=== PATIENT | female | born 1960 | race African-American/Black ===

== ENCOUNTER → 2017-03-24 | Outpatient (CLI) | payer OTHER | LOC: ULTRA 09:19 | DX: K81.9 Cholecystitis, unspecified (principal) ==

== ENCOUNTER 2017-04-01 05:58 | Day surgery (SDC) | payer OTHER ==
[~2017-04-01] VITALS: Ht 170.2 cm; Wt 103.0 kg
--- NOTE | ~2017-04-01 | O ---
[facility] [place] [address] OPERATIVE REPORT Name: BABAR LORENZO Room #: [facility].#: [id number] Admission: 04/01/17 Attend Phys: Cristopher Ortiz MD, F Discharge: 04/01/17 Date of : 64 Report #: [id number] THIS REPORT FOR: //name// CC: [facility] physician/PCP Karen Ortiz DATE OF SERVICE: 04/01/2017 SURGEON: Cristopher Ortiz M.D. ACADEMIC ADMINISTRATOR: Ignacia Collado NP. PREOPERATIVE DIAGNOSES: 1. Biliary colic. 2. Posterior neck subcutaneous mass. POSTOPERATIVE DIAGNOSES: 1. Chronic acalculous cholecystitis with biliary colic symptoms. 2. Incarcerated umbilical hernia. 3. Posterior neck subfascial mass (measuring 8.5 cm x 7.3 cm x 3.3 cm). OPERATIVE PROCEDURES: 1. Robotic cholecystectomy. 2. Laparoscopic primary repair of umbilical hernia. 3. Excision of posterior neck subfascial mass with complex closure. ANESTHESIA: General endotracheal anesthesia and local anesthetic. ESTIMATED BLOOD LOSS: 50 mL. SPECIMENS: 1. Gallbladder. 2. Posterior neck subfascial mass. COMPLICATIONS: None appreciated. INDICATIONS FOR PROCEDURE: This is a 56-year-old female patient who complained of mid abdominal pain. She was seen in the [facility] Emergency Room approximately one month ago and underwent a CT of the abdomen and pelvis, which revealed mild prominence of the intra and extrahepatic biliary tree with mild gallbladder wall thickening and fatty infiltration of the liver. This was followed with an ultrasound showing gallbladder wall thickening. Again, no gallstones were seen. The patient was placed on oral antibiotics for 1 week. She reports having had postprandial right upper quadrant abdominal pain last week, which resolved. She denies nausea, vomiting, fever or chills. In [facility] [address] [address] OPERATIVE REPORT Name: BABAR LORENZO Room #: DEP [facility].Deven.#: [id number] Admission: 04/01/17 Attend Phys: Cristopher Ortiz MD, F Discharge: 04/01/17 Date of : 64 Report #: [id number] addition to this, the patient has complaints of a posterior neck subcutaneous mass. She underwent an MRI showing changes consistent with a lipoma. She denies trauma to the area and has had no pain, fever, chills or unintentional weight loss. The patient states that the mass has been present since 2003 and the mass has slowly grown over time. Excision of the mass is indicated. OPERATIVE FINDINGS: Laparoscopic cholecystectomy/robotically, the patient's gallbladder appeared to be chronically thickened. The liver, stomach, small bowel and colon in the surrounding area appeared otherwise normal. There were some mild fatty changes of the liver without omar steatohepatitis. The critical view consisting of cystic artery, cystic duct and lower edge of the gallbladder forming a window through which the liver was visible, was seen prior to clipping and dividing both the cystic artery and cystic duct. A posterior cystic artery was also present. While removing the patient's gallbladder from the abdominal cavity, an incarcerated umbilical hernia defect was identified. This was repaired with a separate suture for complete closure. The gallbladder was opened on the back table after its removal from the patient's body. Upon opening the gallbladder, cholesterolosis was seen in the gallbladder mucosa. No gallstones were seen. The gallbladder wall was chronically thickened at least 5 mm or 6 mm. The patient's posterior neck mass was subfascial and was not well circumscribed or encapsulated. The fatty tissue was fibrous and difficult to separate from the surrounding tissue. The mass measurements were 8.5 x 7.3 x 3.3 cm. The mass was located subfascially and in removing this, closure of the defect was complex requiring closure of multiple layers. At the conclusion of the operation, the sponge, needle and instrument counts were correct. No other significant pathology either within the abdominal cavity or in the subcutaneous space of the posterior neck was present. There was no evidence for iatrogenic injury. DESCRIPTION OF PROCEDURE IN DETAIL: After the benefits and risks of the procedure were explained to the patient, which include but are not limited to risks of bleeding, infection, postoperative pain, postoperative expectations, informed consent was obtained. The patient was identified in the preoperative holding area. She was given IV antibiotics as documented in the chart in line with the SCIP metrics. The patient was then taken to the operating room and she was placed in the supine position. SCDs were placed on the patient's bilateral lower extremities and pneumatic compression was initiated. The patient was then given IV sedation and she was intubated without incident. The bed was turned 180 degrees with the feet towards the anesthesia provider. The patient's abdomen was then prepped and draped in the standard sterile fashion. Timeout was performed to identify the correct patient and procedure. Local anesthetic was infiltrated into the skin and subcutaneous tissue in the left abdomen where an 8-mm transverse incision was made. A 5 mm Visiport was [address] [address] OPERATIVE REPORT Name: BABAR LORENZO [id number] Admission: 04/01/17 Attend Phys: Cristopher Ortiz MD, F Discharge: 04/01/17 Date of : 64 Report #: [id number] placed intraperitoneally with a 0-degree angled laparoscope. Pneumoperitoneum was then achieved with insufflation of carbon dioxide to 15 mmHg. A 30-degree angled laparoscope was inserted. A supraumbilical 11 mm and right lower quadrant 5 mm ports x2 were placed under direct visualization after local anesthetic was infiltrated into the skin and subcutaneous tissue and appropriately sized incisions were made. Operative findings are as noted above. The 5 mm port that was initially placed in the left abdomen was upsized to an 8 mm da Krystal port. Each of the ports other than the supraumbilical port was port specific for the da Krystal robot. The robot was docked after being advanced to the patient's right shoulder, crossing over the patient. Each of the ports was connected to the robot in the standard fashion. Prior to docking the robot, the patient had been placed in the reverse Trendelenburg position, rotated to her left. After docking the robot, the robotic 10 mm camera was inserted at the umbilicus angled 30 degrees down. The graspers were then advanced into the fourth arm and the right mid 8 mm port; the hook cautery was advanced into the port within the left abdomen. Each instrument was advanced under direct visualization into the field of view. I then broke scrub to perform the dissection on the robotic console. The dissection was undertaken robotically. The dome of the gallbladder was retracted in the cephalad direction. The gallbladder peritoneum was then scored medially and laterally. Dissection was difficult as the patient had significant intra-abdominal fat, which obscured the lower gallbladder. I used the instrument within the fourth arm to push down the tissue and used the grasper through the working port in the right abdomen to elevate the gallbladder. Dissection was carried out tediously with the hook cautery. The critical view consisting of the cystic artery, cystic duct and the lower edge of the gallbladder forming a window through which the liver was visible and was seen as described above. The cystic duct was then triply clipped and divided sharply, leaving 2 clips on the cystic duct stump. The cystic artery was also clipped and divided. The gallbladder was then dissected off the liver bed with electrocautery and appropriate traction. The posterior cystic artery was encountered and this was clipped and divided. Dissection continued until the gallbladder was completely freed from the liver bed and detached. The gallbladder was placed in the right upper quadrant of the abdomen, adjacent to the liver. The suction device was used to ensure good hemostasis within the liver bed. The robot was then undocked from the ports and backed away from the patient. A 5 mm 30-degree angled laparoscope was inserted and the Endopouch was advanced through the supraumbilical port. The gallbladder was placed within the Endopouch and this was withdrawn through the 11 mm port site. While doing so, an incarcerated umbilical hernia was identified inferior to the port and gallbladder removal area. The gallbladder was removed from the patient's abdominal cavity. An 0 PDS suture was placed transversely with the [address] [address] OPERATIVE REPORT Name: BABAR LORENZO Room #: [facility]..#: [id number] Admission: 04/01/17 Attend Phys: Cristopher Ortiz MD, F Discharge: 04/01/17 Date of : 64 Report #: [id number] Pedro Luis-Kurtis laparoscopic fascial closure device to approximate the fascia. The more inferior umbilical defect was skeletonized with appropriate traction and electrocautery to identify the defect. A [id number] 0 PDS suture was then placed with the needle tipped suture grasper. The suture was tied under direct visualization to ensure no incorporation of intraabdominal content. The abdominal cavity was then desufflated and the remaining ports were removed. Interrupted subcuticular 4-0 Monocryl sutures and Dermabond were then used to close the skin incisions. The patient tolerated this portion of the procedure well. The patient was then placed in the left lateral decubitus position with the right side up. The planned incision had been drawn out on the patient's neck. The neck was prepped and draped in the standard sterile fashion. Local anesthetic was infiltrated into the skin and subcutaneous tissue. A sharp #15 blade scalpel was used to make an incision through the skin. The skin was very thick. Electrocautery was used to dissect through this area down to the abdominal wall fat. The abdominal wall fat was dissected as well and fascia was seen. The fascia was then split and the mass was identified deep to the fascial layer. As described above, the fatty tissue was quite fibrous and adherent to the surrounding tissue making delineation of the mass itself quite difficult. The fibrofatty tissue was dissected free with electrocautery using both cut and coag modes. An area of bleeding was made hemostatic with a [id number] 3-0 Vicryl suture. Dissection of the mass was completed and the specimen was removed. Bleeding points were made hemostatic with electrocautery. The wound was then irrigated and no further bleeding was present. After ensuring final hemostasis, the wound was closed in layers. A running 3-0 Vicryl suture was used to approximate the subfascial tissue and fascia. A running 3-0 Vicryl suture was then used to approximate the subdermal tissue. A running 4-0 Stratafix suture was then used to close the skin. Dermabond was applied to the entire length of the suture line. The patient tolerated the procedure well. She was returned to the supine position, awakened, extubated and taken to recovery room in stable condition with no apparent intraoperative complications. <ELECTRONICALLY SIGNED> By: Cristopher Ortiz MD, FACS 04/03/17 [id number] Cristopher Ortiz MD, FACS /nt
--- NOTE | ~2017-04-01 | S ---
[facility] [place] [address] SURGICAL PATH RPT PROCEDURE Name: BURT LORENZO Room #: DEP [facility] M.R.#: [id number] Admission: 04/01/17 Date of : 64 Discharge: 04/01/17 Report #: [id number] Path Case #: [id number] PATHOLOGY REPORT COLLECTION DATE: 04/01/2017 RECEIVED DATE: 04/02/2017 SUBMITTING PHYS: Dr. Cristopher Ortiz OTHER PHYS: SPECIMEN(S) RECEIVED: A.Gallbladder B.Posterior neck * * * * * * * * * * * * FINAL DIAGNOSIS: A. Gallbladder, cholecystectomy: - Mild chronic cholecystitis. B. Posterior neck lipoma, excision: - Mature adipose tissue along with dense fibrovascular connective tissue, compatible with a lipoma. (IUV:mgr; 04/03/2017) PATHOLOGIST: Camila Thomas M.D. REPORT ELECTRONICALLY SIGNED BY: Camila Thomas M.D. DATE/TIME: 04/03/2017 14:32 * * * * * * * * * * * * GROSS PATHOLOGY: A. Received in formalin labeled "Burt Lorenzo, gallbladder," is a 8.5 x 3.2 x 2.1 cm, previously opened gallbladder with smooth, shiny, pale tangray serosal surfaces. The gallbladder is opened to show a spongy, pale tangray, bile-stained mucosa and an average wall thickness of 0.3 cm. Calculi are not present and no masses are noted grossly. Animal Control Specialist sections from the body and fundus are submitted along with the proximal margin in cassette A1. B. Received in formalin labeled "Burt Lorenzo, posterior neck lipoma," are multiple pieces of lobulated fibroadipose tissue measuring 5.5 x 4.2 x 1.1 cm in aggregate dimensions. Sectioning reveals homogeneous, bright yellow cut surfaces. Animal Control Specialist sections are submitted in cassette B1. (SNA; 04/02/2017) CLINICAL HISTORY: Cholecystitis, posterior neck lipoma [address] [address] SURGICAL PATH RPT PROCEDURE Name: BURT LORENZO Room #: [facility] M.R.#: [id number] Admission: 04/01/17 Date of : 64 Discharge: 04/01/17 Report #: [id number] Path Case #: [id number] INITIAL CPT CODE(S): A; 32018 B; 52547 Professional services performed by [facility] [address], [place] [address] Technical services performed by [facility] at [address] [place] [address], [facility] [address], [place] [address]. [facility] [address] [address] PHONE: [phone] DIRECTOR: Cruz Valencia M.D. * * * END OF REPORT * * *
[~2017-04-01 05:58] MED LIST: ATORVASTATIN CA40 MG PO; LASIX 40 MG TAB40 M2 PO; LISINOPRIL5 MG PO; OXYCODONE-ACET1 EACH PO; VITAMIN D1000 UNI1 PO; VITAMINC500 PO; ZETIA10 MG PO
[2017-04-01 11:15] VITALS: BP 147/70
[2017-04-01] MEDS ORDERED: PERCOCET 7.5-31 EACH PO (16:06)
[2017-04-01] MEDS ORDERED: SENNA-S TABLET1 EACH PO (16:06)
[2017-04-01 16:16] VITALS: BP 147/70
== END 2017-04-01 17:45 | disposition home or self-care (01) ==
LOC: TBA 05:58 → OR 05:58 → TBA 05:59 → OR 09:34
DX: K81.1 Chronic cholecystitis (principal); K42.0 Umbilical hernia with obstruction, without gangrene; D17.0 Benign lipomatous neoplasm of skin and subcutaneous tissue of head, face and neck; K82.4 Cholesterolosis of gallbladder; I10 Essential (primary) hypertension; E78.5 Hyperlipidemia, unspecified; Z98.890 Other specified postprocedural states; E66.9 Obesity, unspecified
CPT/HCPCS: 49000; 50010; 50101; 50249; 50411; 50555; 50558; 51975; 52265; 54022; 54118; 56524; 56525; 56526; 56632; 56641; 57006; 62110; 62900; 70005